=== PATIENT | male | born 1985 | race Caucasian/White ===

== ENCOUNTER → 2025-10-30 13:34 | Outpatient (CLI) | payer OTHER, SELFPAY ==
--- NOTE | 2025-10-30 13:38 | DI.CT.S_ITS ---
PROCEDURE: CT LE LT W CON INDICATIONS: evaluate cement fragment TECHNIQUE: Noncontrast 1-1.5 mm axial sections acquired from the mid-patella to the proximal tibia, with coronal and sagittal reformats. Dose reduction techniques were utilized. COMPARISON: None. FINDINGS: Unicompartmental lateral knee arthroplasty. Possible loosening of the posterior tibial tray which is approximately 3 millimeters elevated from the adjacent bone. Prior anterior cruciate ligament reconstruction. Moderate medial compartment osteoarthritis and moderate patellofemoral osteoarthritis. 5 millimeter loose body in the expected location of the lateral gastrocs recess. 7 millimeter loose body in the expected location of the popliteus recess. Additional smaller loose bodies in each of these locations. No effusion. Popliteal cyst. IMPRESSION: Osteoarthritis with loose bodies. Possible tibial tray loosening. Dictated by: De Watts M.D. on 10/30/2025 at 19:19 Approved by: De Watts M.D. on 10/30/2025 at 19:23
== END ==
LOC: CT 13:37
PROVIDERS: Referring Provider Orthopaedic Surgery Adult Reconstructive Orthopaedic Surgery; Visit Provider Orthopaedic Surgery
DX: S83.512D Sprain of anterior cruciate ligament of left knee, subsequent encounter (principal); M94.262 Chondromalacia, left knee; M17.12 Unilateral primary osteoarthritis, left knee; M23.42 Loose body in knee, left knee; X58.XXXD Exposure to other specified factors, subsequent encounter; Z96.652 Presence of left artificial knee joint
CPT/HCPCS: 73700